=== PATIENT | female | born 1980 | race Caucasian/White ===

== ENCOUNTER 2018-09-25 21:15 | Emergency (ER) | payer OTHER ==
[2018-09-25] MEDS ORDERED: SODIUM CHLORIDE 0.9% 1,000 ML IV ONE (21:31)
--- NOTE | 2018-09-25 21:33 | ED Physician Documentation ---
PD HPI CHEST PAIN - Stated complaint Stated Complaint: ELEVATED HR/HBP/CP - Chief complaint Chief Complaint: Cardiac - History obtained from History obtained from: Patient, Family - History of Present Illness Timing - onset: Today Timing - onset during: Rest Timing - duration: Days (1) Timing - details: Gradual onset, Still present Quality: Pressure Location: Substernal Radiation: No: Jaw, Neck, Back Improved by: Rest Worsened by: Exertion Associated symptoms: No: Shortness of air, Diaphoresis, Nausea, Vomiting, Feeling faint / dizzy, General Weakness, Palpitations Similar symptoms before: Has not had sx before Recently seen: Not recently seen - Additional information Additional information: 38-year-old female who has noted a rapid heart rate and some chest pressure has come to the emergency department. She states that she has had a rapid heart rate one time previously with a panic attack but does not feel like this seems like a panic attack to her. She thinks she might be dehydrated. 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 She states she has not been ill recently.She does report that she has had some low back pain 2 days ago that was fairly severe causing her to walk bent over. This was somewhat better today. Review of Systems Constitutional: denies: Fever, Chills, Myalgias, Fatigue Eyes: denies: Decreased vision Ears: denies: Ear pain Nose: denies: Rhinorrhea / runny nose, Congestion Throat: denies: Sore throat Cardiac: reports: Chest pain / pressure. denies: Palpitations, Pedal edema, Calf pain Respiratory: denies: Dyspnea, Cough GI: denies: Abdominal Pain, Nausea, Vomiting, Constipation, Diarrhea : denies: Dysuria, Frequency Skin: denies: Rash Musculoskeletal: reports: Back pain. denies: Neck pain, Extremity pain Neurologic: denies: Generalized weakness, Focal weakness, Numbness PD PAST MEDICAL HISTORY - Present Medications Home Medications: Ambulatory Orders Medication Instructions Recorded Confirmed RX: Azithromycin [Zithromax] 250 mg PO DAILY #4 tablet 09/26/18 - Allergies Allergies/Adverse Reactions: Allergies Allergy/AdvReac Type Severity Reaction Status Date / Time No Known Drug Allergies Allergy Verified 09/25/18 21:22 PD ED PE NORMAL - Vitals Vital signs reviewed: Yes (hypertensive low grade fever and tachycardia) - General General: Alert and oriented X 3, No acute distress, Well developed/nourished - HEENT HEENT: Atraumatic, PERRL, EOMI, Ears normal, Other (dry mucous membranes) - Neck Neck: Supple, no meningeal sign, No bony TTP - Cardiac Cardiac: No murmur, Other (tachy to 115) - Respiratory Respiratory: No respiratory distress, Clear bilaterally - Abdomen Abdomen: Soft, Non tender - Back Back: No CVA TTP, No spinal TTP - Derm Derm: Normal color, Warm and dry, Other (papules of neurofibromatosis are present) - Extremities Extremities: No deformity, No edema, No calf tenderness / cord - Neuro Neuro: Alert and oriented X 3, exchange administrator 2-12 intact Eye Opening: Spontaneous Motor: Obeys Commands Verbal: Oriented GCS Score: 15 - Psych Psych: Normal mood, Normal affect Results - Vitals Vitals: Vital Signs - 24 hr 09/25/18 09/25/18 09/25/18 21:22 21:51 22:41 Temperature 37.9 C H Heart Rate 117 H 106 H 102 H Respiratory 18 16 20 Rate Blood Pressure 137/96 H 127/87 H 120/86 H O2 Saturation 98 99 98 09/26/18 09/26/18 00:06 01:58 Temperature Heart Rate 99 97 Respiratory 18 19 Rate Blood Pressure 115/82 H 111/86 H O2 Saturation 98 98 Oxygen O2 Source Room air - Labs Labs: Laboratory Tests 09/25/18 09/25/18 09/25/18 21:25 21:25 21:25 WBC 11.4 H RBC 3.61 L Hgb 9.4 L Hct 28.3 L MCV 78.6 L MCH 26.2 L MCHC 33.3 RDW 16.6 H Plt Count 330 MPV 7.7 L Neut # (Auto) 9.3 H Lymph # (Auto) 0.8 L [place] # (Auto) 1.2 H Eos # (Auto) 0.0 Baso # (Auto) 0.0 Absolute Nucleated RBC 0.01 Nucleated RBC % 0.0 Sodium 129 L Potassium 3.7 Chloride 94 L Carbon Dioxide 22 Anion Gap 13.0 BUN 13 Creatinine 0.8 Estimated GFR (MDRD) 81 L Glucose 101 H Calcium 9.2 Total Bilirubin 0.9 AST 24 ALT 20 Alkaline Phosphatase 133 H Troponin I < 0.04 Total Protein 8.1 Albumin 3.6 Globulin 4.5 H Albumin/Globulin Ratio 0.8 L Lipase 56 H Urine Color Urine Clarity Urine pH Ur Specific [place] Urine Protein Urine Glucose (UA) Urine Ketones Urine Occult Blood Urine Nitrite Urine Bilirubin Urine Urobilinogen Ur Leukocyte Esterase Urine RBC Urine WBC Ur Squamous Epith Cells Urine Bacteria Ur Microscopic Review Urine Culture Comments Urine HCG, Qual 09/25/18 22:20 WBC RBC Hgb Hct MCV MCH MCHC RDW Plt Count MPV Neut # (Auto) Lymph # (Auto) [place] # (Auto) Eos # (Auto) Baso # (Auto) Absolute Nucleated RBC Nucleated RBC % Sodium Potassium Chloride Carbon Dioxide Anion Gap BUN Creatinine Estimated GFR (MDRD) Glucose Calcium Total Bilirubin AST ALT Alkaline Phosphatase Troponin I Total Protein Albumin Globulin Albumin/Globulin Ratio Lipase Urine Color YELLOW Urine Clarity CLEAR Urine pH 6.5 Ur Specific [place] <=1.005 Urine Protein NEGATIVE Urine Glucose (UA) NEGATIVE Urine Ketones TRACE Urine Occult Blood LARGE H Urine Nitrite NEGATIVE Urine Bilirubin NEGATIVE Urine Urobilinogen 0.2 (NORMAL) Ur Leukocyte Esterase NEGATIVE Urine RBC 11-25 H Urine WBC 4-5 Ur Squamous Epith Cells MANY Squamous H Urine Bacteria Moderate H Ur Microscopic Review INDICATED Urine Culture Comments NOT INDICATED Urine HCG, Qual NEGATIVE - Rads (name of study) chest Radiology: Prelim report reviewed (Impression: Miliary nodules; differential considerations include tuberculosis, fungal infection, old varicella pneumonia, sarcoidosis, certain metastases, and several other possibilities. Direct comparison to old images would be most helpful, if they can be made available.), EMP read indepedently, See rad report Procedures - IVC sono (time) 2131 Bedside IVC sono: IVC measures (cm) (0.99), IVC collapsed c insp (cm) (complete), Dehydration (est 1-2 liter deficit) PD MEDICAL DECISION MAKING - ED course Complexity details: reviewed results, re-evaluated patient, considered differential, d/w patient, d/w family, d/w store sales consultant (Med con [facility]: Dr. 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 Saline is begun. She does have low grade fever and she is administered tylenol as well. Her x-ray is concerning for miliary nodularity and the [facility] med con service was consulted and Dr. Wright recommends work-up for TB to be done at the TB clinic at [facility]. The patient does not appear to have risk factors for TB and she is not coughing or making any phlegm. We did try to induce sputum here in the emergency department but we were unsuccessful. The patient did present to the emergency department with rapid heart rate and was found to be dehydrated. She has improvement in her heart rate with hydration. She did have some tightness in her chest and a chest x-ray was obtained. She is treated for atypical pneumonia she is administered Rocephin IV here in the emergency department and she is administered Zithromax 500 mg orally. [address] will place her on a course of a azithromycin and have her follow-up with the TB clinic at [facility]. She will also need follow-up for anemia. She is referred to the [facility]. Departure - Departure Disposition: 01 Home, Self Care Clinical Impression: Atypical pneumonia, Dehydration, Anemia Condition: Stable Instructions: ED Anemia Type Not Specified, ED Dehydration, ED Pneumonia Adult Follow-Up: [facility] [Provider Group] Prescriptions: RX: Azithromycin [Zithromax] 250 mg PO DAILY #4 tablet Comments: Today there are findings on your chest x-ray concerning for tuberculosis and the infectious disease specialist we consulted by telephone recommended that you have a work-up done for TB. The best place to have this done is at the TB clinic at [facility]. Please call them [phone] to make an appointment. Forms: Activity restrictions Discharge Date/Time: 09/26/18 02:06
[2018-09-25] MEDS ORDERED: ACETAMINOPHEN 325 MG TABLET PO STA (21:38)
[2018-09-25 21:40] LABS: BASOPHILS % (AUTO) 0.1 %; EOSINOPHILS % (AUTO) 0.1 %; HGB - HEMOGLOBIN 9.4 g/dL (12.0-16.0); LYMPHOCYTES # (AUTO) 0.8 10^3/uL (1.5-3.5); LYMPHOCYTES % (AUTO) 6.6 %; MEAN CORPUSCULAR HEMOGLOBIN 26.2 pg (27.0-31.0); MEAN CORPUSCULAR HGB CONC 33.3 g/dL (32.0-36.0); MEAN CORPUSCULAR VOLUME 78.6 fL (81.0-99.0); MEAN PLATELET VOLUME 7.7 fL (7.9-10.8); MONOCYTES # (AUTO) 1.2 10^3/uL (0.0-1.0); MONOCYTES % (AUTO) 10.9 %; NEUTROPHILS # (AUTO) 9.3 10^3/uL (1.5-6.6); NEUTROPHILS % (AUTO) 82.3 %; PLT - PLATELET COUNT 330 10^3/uL (130-450); RED BLOOD COUNT 3.61 10^6/uL (4.20-5.40); RED CELL DISTRIBUTION WIDTH 16.6 % (12.0-15.0); WHITE BLOOD COUNT 11.4 x10^3/uL (4.8-10.8)
[2018-09-25 21:49] LABS: ALBUMIN 3.6 g/dL (3.2-5.5); ALBUMIN/GLOBULIN RATIO 0.8 (1.0-2.2); BILIRUBIN,TOTAL 0.9 mg/dL (0.2-1.0); CALCIUM 9.2 mg/dL (8.5-10.3); CREATININE 0.8 mg/dL (0.4-1.0); TOTAL PROTEIN 8.1 g/dL (6.7-8.2)
--- NOTE | 2018-09-25 22:14 | XRAY Report ---
Reason: chest pain Procedure Date: 09/25/2018 Accession Number: [id number] / [id number] Procedure: XR - Chest 1 View X-Ray CPT Code: 52064 FULL RESULT: EXAM: CHEST RADIOGRAPHY EXAM DATE: 09/25/2018 09:50 PM. CLINICAL HISTORY: Chest pain. COMPARISON: None. TECHNIQUE: 1 view. FINDINGS: Lungs/Pleura: Numerous tiny nodular densities throughout both lungs. No consolidation, effusion, or pneumothorax. Mediastinum: Within exam limitations, the cardiomediastinal contour is normal. Upper lobe vessels not distended. Other: None. IMPRESSION: Miliary nodules; differential considerations include tuberculosis, fungal infection, old varicella pneumonia, sarcoidosis, certain metastases, and several other possibilities. Direct comparison to old images would be most helpful, if they can be made available. RADIA
[2018-09-25 22:26] LABS: BILIRUBIN,URINE NEGATIVE (NEGATIVE); GLUCOSE, URINE (UA) NEGATIVE (NEGATIVE); KETONES,URINE (UA) TRACE mg/dL (NEGATIVE); LEUKOCYTE ESTERASE, URINE NEGATIVE (NEGATIVE); NITRITE,URINE NEGATIVE (NEGATIVE); OCCULT BLOOD,URINE LARGE (NEGATIVE); PH,URINE 6.5 PH (5.0-7.5); PROTEIN,URINE NEGATIVE (NEGATIVE); UROBILINOGEN,URINE 0.2 (NORMAL) E.U./dL (NORMAL)
[2018-09-25 22:28] LABS: CLARITY,URINE CLEAR (CLEAR); HCG UR QUAL NEGATIVE
[2018-09-25 22:34] LABS: BACTERIA,URINE Moderate /HPF (None Seen); SQUAMOUS EPITHELIAL CELL,UR MANY Squamous (<= Few)
[2018-09-25] MEDS ORDERED: AZITHROMYCIN 250 MG TABLET PO STA (23:52)
[2018-09-25] MEDS ORDERED: cefTRIAXone 1 GM in SODIUM CHLORIDE 0.9% MINIBAG 100 ML IV STA (23:52)
[2018-09-26 01:58] VITALS: BP 111/86
== END 2018-09-26 02:06 | disposition home or self-care (01) ==
LOC: ED 21:15
DX: J18.9 Pneumonia, unspecified organism (principal); E86.0 Dehydration; D64.9 Anemia, unspecified; Q85.01 Neurofibromatosis, type 1
CPT/HCPCS: 36415; 71045; 80053; 81001; 81003; 81025; 83690; 84484; 85025; 87086; 93005; 96361; 96365; 96366; 99284

== ENCOUNTER 2018-09-26 07:11 | Outpatient (CLI) | payer OTHER | END 2018-09-26 07:12 | disposition critical access hospital (66) | LOC: EMS 07:11 | PROVIDERS: ATTEND Surgery | DX: M79.621 Pain in right upper arm (principal); R07.1 Chest pain on breathing | CPT/HCPCS: A0425; A0429 ==

== ENCOUNTER 2018-09-26 07:29 | Emergency (ER) | payer OTHER ==
--- NOTE | 2018-09-26 07:39 | ED Physician Documentation ---
PD HPI CHEST PAIN - Stated complaint Stated Complaint: L SIDED CHEST PX - Chief complaint Chief Complaint: Resp - History obtained from History obtained from: Patient, EMS - History of Present Illness Timing - onset: Today (She had been having some feeling of chest tightness and left anterior pains associated with elevated heart rate just for a day or 2. She was seen last night in the ER with chest x-ray showing some diffuse small nodules concerning for atypical infection. She was given IV fluids and nebulizer treatment and some anti-inflammatories and felt okay at the time. She awoke this morning with a pleuritic significant pain on the right lateral chest. She denies any feeling of fever but has felt chilled. She denies any coughing. She has not had any prior similar episodes.), How many days ago (2-3) Timing - onset during: Rest, Light activity Timing - duration: Days (2-3 days of some chest tightness and mild pain, with significant right chest pain today.) Timing - details: Gradual onset, Still present Quality: Aching, Sharp, Pain Location: Left chest (yesterday), Right chest (today) Radiation: No: Neck, Back Associated symptoms: Shortness of air, Palpitations (feeling heart rate is fast). No: Nausea, Feeling faint / dizzy Similar symptoms before: Has not had sx before Recently seen: Emergency Dept (last evening for similar) Review of Systems Constitutional: reports: Chills, Fatigue. denies: Fever, Myalgias Nose: denies: Rhinorrhea / runny nose, Congestion Throat: denies: Sore throat Respiratory: denies: Cough GI: reports: Other (residential poor appetite and trouble gaining weight. Denies recent weight loss per se.). denies: Abdominal Pain, Nausea, Vomiting Skin: denies: Rash, Lesions Neurologic: reports: Generalized weakness. denies: Focal weakness, Numbness, Near syncope PD PAST MEDICAL HISTORY - Past Medical History Cardiovascular: None Respiratory: None GI: None Derm: Other (neurofibromatosis 1) - Past Surgical History Past Surgical History: Yes General: Appendectomy - Present Medications Home Medications: Ambulatory Orders Medication Instructions Recorded Confirmed Azithromycin [Zithromax] 250 mg PO DAILY #4 tablet 09/26/18 09/26/18 Docusate Sodium 100 mg PO DAILY #30 capsule 09/26/18 Hydrocodone/Acetaminophen [[place] 1 each PO Q6H PRN #25 tablet 09/26/18 5-325 Tablet] Naproxen 375 mg PO BID #20 tablet 09/26/18 dexAMETHasone [Decadron] 4 mg PO DAILY #5 tablet 09/26/18 - Allergies Allergies/Adverse Reactions: Allergies Allergy/AdvReac Type Severity Reaction Status Date / Time No Known Drug Allergies Allergy Verified 09/26/18 07:36 - Social History Does the pt smoke?: No Smoking Status: Never smoker Does the pt drink ETOH?: No Does the pt have substance abuse?: No - Immunizations Immunizations are current?: No PD ED PE NORMAL - Vitals Vital signs reviewed: Yes - General General: Alert and oriented X 3, Other (appears uncomfortable with guarded breathing due to pain right chest. ). No: Well developed/nourished (small size and thin.) - HEENT HEENT: Ears normal - Neck Neck: Supple, no meningeal sign, No adenopathy - Cardiac Cardiac: RRR (mild tachycardia), No murmur - Respiratory Respiratory: Clear bilaterally (diminished sounds bilaterally but guarded breathing. No overt wheezing nor congestion. ) - Abdomen Abdomen: Soft, Non tender, Other (fullness without tenderness upper to mid abd, large palpable mass. Nonpulsatile.) - Back Back: No CVA TTP - Derm Derm: Normal color, Warm and dry - Extremities Extremities: No tenderness to palpate, No edema, No calf tenderness / cord, Other (small nodules felt under skin c/w fibromas. ) - Neuro Neuro: Alert and oriented X 3, No motor deficit, Normal speech Results - Vitals Vitals: Vital Signs - 24 hr 09/26/18 09/26/18 09/26/18 07:32 07:44 08:49 Temperature 36.6 C 36.6 C Heart Rate 105 H 101 H 110 H Respiratory 16 16 Rate Blood Pressure 127/82 H 127/82 H O2 Saturation 100 100 09/26/18 11:26 Temperature 37.1 C Heart Rate 108 H Respiratory 20 Rate Blood Pressure 115/79 O2 Saturation 98 Oxygen O2 Source Room air - Labs Labs: Laboratory Tests 09/26/18 09/26/18 09/26/18 08:00 08:00 08:00 WBC 10.3 RBC 3.50 L Hgb 9.0 L Hct 27.9 L MCV 79.7 L MCH 25.6 L MCHC 32.1 RDW 16.7 H Plt Count 276 MPV 7.3 L Neut # (Auto) 8.6 H Lymph # (Auto) 0.4 L Rains # (Auto) 1.3 H Eos # (Auto) 0.0 Baso # (Auto) 0.1 Absolute Nucleated RBC 0.00 Nucleated RBC % 0.0 ESR PT INR D-Dimer > 1050.0 H Sodium 135 Potassium 3.5 Chloride 100 L Carbon Dioxide 22 Anion Gap 13.0 BUN 10 Creatinine 0.6 Estimated GFR (MDRD) 112 Glucose 102 H Calcium 8.6 Total Bilirubin 0.9 AST 17 ALT 19 Alkaline Phosphatase 118 Total Protein 7.6 Albumin 3.2 Globulin 4.4 H Albumin/Globulin Ratio 0.7 L Lipase 33 09/26/18 09/26/18 08:00 12:23 WBC RBC Hgb Hct MCV MCH MCHC RDW Plt Count MPV Neut # (Auto) Lymph # (Auto) Rains # (Auto) Eos # (Auto) Baso # (Auto) Absolute Nucleated RBC Nucleated RBC % ESR 68 H PT 16.4 H INR 1.5 H D-Dimer Sodium Potassium Chloride Carbon Dioxide Anion Gap BUN Creatinine Estimated GFR (MDRD) Glucose Calcium Total Bilirubin AST ALT Alkaline Phosphatase Total Protein Albumin Globulin Albumin/Globulin Ratio Lipase - Rads (name of study) chest xray Radiology: Prelim report reviewed (similar to prior with multiple small nodules) chest/abd/pelvic CT Radiology: Prelim report reviewed, Discussed with rads (Multiple lung nodules as well as liver nodules and a very large intra-abdominal mass measuring up to 27 cm in length and 13 cm wide. The origin of it is not completely clear. It may be from the adrenal area. There is displacement of other organs around it.), See rad report PD MEDICAL DECISION MAKING - ED course Complexity details: reviewed results, re-evaluated patient (She is feeling better with significantly less pain after pain medicine and anti- inflammatories.), considered differential (The concern of infectious versus tissue causes of the lung nodules is better ascertained with the CT scan. This was done and showed it to be apparent tissue nodules in the lung and liver. This would be unlikely to be her neurofibromatosis. 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 I talked with and pro which is the [facility]. They arranged a follow-up interventional radiology biopsy for tomorrow and the images were pushed to them and his CD was given for the patient. On her CT there was no signs of blood clots nor other infectious or vascular process. She can be treated outpatient with anti- inflammatories and pain medicine. She has follow-up tomorrow with [facility].), d/w patient, d/w professional services consultant (Discussed with [facility] through [facility] for disposition. They were able to arrange a follow-up with the patient at their first [place] clinic for interventional radiology biopsy and then to be seen at the urgent care tomorrow. This seems like an reasonable type follow-up for the patient.) Departure - Departure Disposition: 01 Home, Self Care Clinical Impression: Pleuritic chest pain, Intra-abdominal tumor, Lung nodule, multiple Condition: Stable Record reviewed to determine appropriate education?: Yes Prescriptions: dexAMETHasone [Decadron] 4 mg PO DAILY #5 tablet Docusate Sodium 100 mg PO DAILY #30 capsule Hydrocodone/Acetaminophen [[place] 5-325 Tablet] 1 each PO Q6H PRN #25 tablet PRN Reason: Pain Naproxen 375 mg PO BID #20 tablet Comments: You can stop the azithromycin antibiotics as this does not look infectious. You do have a large abdominal tumor and this needs to be better evaluated. [facility] has arranged for you to get a biopsy of the tumor at their [place] location tomorrow and they are going to call you for details and information about it. You can use Decadron steroid anti-inflammatory and Tylenol or hydrocodone as needed for the pains. Do not take any anti-inflammatories or aspirin today in anticipation of biopsy tomorrow. After that you could use some naproxen to help with the inflammation and pain. Stay well-hydrated.
[2018-09-26] MEDS ORDERED: MORPHINE 2 MG/ML CARPUJECT IVP STA ×2 (07:40→08:57)
[2018-09-26] MEDS ORDERED: SODIUM CHLORIDE 0.9% 1,000 ML IV ONE (07:40)
[2018-09-26] MEDS ORDERED: KETOROLAC 15 MG/ML VIAL IVP STA (07:40)
[2018-09-26] MEDS ORDERED: ALBUTEROL NEB 2.5 MG/3 ML INH STA (08:03)
[2018-09-26 08:12] LABS: BASOPHILS # (AUTO) 0.1 10^3/uL (0.0-0.1); BASOPHILS % (AUTO) 0.6 %; EOSINOPHILS % (AUTO) 0.1 %; LYMPHOCYTES # (AUTO) 0.4 10^3/uL (1.5-3.5); LYMPHOCYTES % (AUTO) 3.6 %; MEAN CORPUSCULAR HEMOGLOBIN 25.6 pg (27.0-31.0); MEAN CORPUSCULAR HGB CONC 32.1 g/dL (32.0-36.0); MEAN CORPUSCULAR VOLUME 79.7 fL (81.0-99.0); MEAN PLATELET VOLUME 7.3 fL (7.9-10.8); MONOCYTES # (AUTO) 1.3 10^3/uL (0.0-1.0); MONOCYTES % (AUTO) 12.3 %; NEUTROPHILS # (AUTO) 8.6 10^3/uL (1.5-6.6); NEUTROPHILS % (AUTO) 83.4 %; PLT - PLATELET COUNT 276 10^3/uL (130-450); RED CELL DISTRIBUTION WIDTH 16.7 % (12.0-15.0); WHITE BLOOD COUNT 10.3 x10^3/uL (4.8-10.8)
[2018-09-26 08:22] LABS: ALBUMIN 3.2 g/dL (3.2-5.5); ALBUMIN/GLOBULIN RATIO 0.7 (1.0-2.2); BILIRUBIN,TOTAL 0.9 mg/dL (0.2-1.0); CALCIUM 8.6 mg/dL (8.5-10.3); CREATININE 0.6 mg/dL (0.4-1.0); TOTAL PROTEIN 7.6 g/dL (6.7-8.2)
--- NOTE | 2018-09-26 08:36 | XRAY Report ---
Reason: chest pain; possible pneumonitis Procedure Date: 09/26/2018 Accession Number: [id number] / [id number] Procedure: XR - Chest 1 View X-Ray CPT Code: 62262 FULL RESULT: EXAM: CHEST RADIOGRAPHY EXAM DATE: 09/26/2018 08:12 AM. CLINICAL HISTORY: Chest pain; possible pneumonitis. COMPARISON: CHEST 1 VIEW 09/25/2018 9:36 PM. TECHNIQUE: 1 view. FINDINGS: Lungs/Pleura: Diminished lung volumes. Reticular nodular densities throughout both lungs. No pneumothorax or pleural effusion. No cavitary lesion demonstrated by plain film. Mediastinum: Within exam limitations, the cardiomediastinal contour is normal. Other: None. IMPRESSION: 1. Poor inspiration. 2. Diffuse reticular-nodular opacities may be related to infectious, inflammatory or neoplastic process. Question tuberculosis, fungal infection, metastatic disease, sarcoidosis or other etiology. No mediastinal or hilar adenopathy evident by plain film. Recommend clinical correlation and contrast-enhanced chest CT. RADIA
[2018-09-26] MEDS ORDERED: IOVERSOL 320 100 ML VIAL IVP ONE ×3 (08:57→09:39)
--- NOTE | 2018-09-26 09:58 | CT Report ---
Reason: chest pain and dyspnea; abn CXR Procedure Date: 09/26/2018 Accession Number: [id number] / [id number] Procedure: CT - ANGIO CHEST W/WO CPT Code: FULL RESULT: EXAM: CT ANGIOGRAM CHEST EXAM DATE: 09/26/2018 09:31 AM. CLINICAL HISTORY: Chest pain and dyspnea. COMPARISON: Chest radiograph from 09/26/2018. TECHNIQUE: Routine helical imaging was performed through the chest in the pulmonary arterial phase. IV Contrast: 80 cc Optiray 320. Reconstructions: Coronal 3-D MIP reconstructions.Sagittal and coronal. In accordance with CT protocol optimization, one or more of the following dose reduction techniques were utilized for this exam: automated exposure control, adjustment of mA and/or KV based on patient size, or use of iterative reconstructive technique. FINDINGS: Pulmonary Arteries: Diagnostic quality: Adequate through the proximal aspects of the segmental arteries. There is fairly substantial respiratory motion which limits evaluation of the more distal vessels. There is no evidence for acute pulmonary embolism in the evaluable pulmonary arteries. Lungs/Pleura: Evaluation of the pulmonary parenchyma is limited by fairly significant respiratory motion. There are innumerable pulmonary nodules in both lungs with greatest prominence in the bases. These appear fairly randomly distributed. Data Collection Interviewer nodules are as follows: 1. A 1.6 x 1.2 cm nodule along the medial aspect of the left major fissure (series 6, image 79). 2. A 1.0 x 1.0 cm nodule in the lateral basilar segment of the right lower lobe (series 6, image 94). A small right pleural effusion is present. No left pleural effusion. Mediastinum: Heart size is within normal limits. There is no pericardial effusion. No mediastinal adenopathy demonstrated. The thoracic aorta is normal in caliber. Upper Abdomen: Please refer to separately reported CT of the abdomen and pelvis for details. Other: No axillary or supraclavicular adenopathy. No suspicious osseous lesion. There appear to be multiple small cutaneous or subcutaneous nodules in the chest, such as in the right upper breast (series 5, image 51), central anterior chest (series 5, image 74), lower posterior chest (series 5, images 115 and 119), and right lateral lower chest (series 5, image 133). IMPRESSION: 1. No evidence of acute pulmonary embolism to the proximal aspects of the segmental branches. The distal branch vessels are not well evaluated secondary to substantial respiratory motion. 2. Innumerable bilateral pulmonary nodules with basilar distribution, raising the possibility of metastatic disease. 3. Multiple cutaneous and subcutaneous nodules in the chest, which are nonspecific but could also represent metastases. [facility]IA ADDENDUM: 09/26/18 10:[address] Pina by Dr. Kumar at approximately 10:09 AM on 09/26/2018. There is reportedly history of neurofibromatosis, suggesting the cutaneous nodules may represent neurofibromas.
--- NOTE | 2018-09-26 10:27 | CT Report ---
Reason: abd fullness Procedure Date: 09/26/2018 Accession Number: [id number] / [id number] Procedure: CT - Abdomen/Pelvis W CPT Code: FULL RESULT: EXAM: CT ABDOMEN AND PELVIS EXAM DATE: 09/26/2018 09:31 AM. CLINICAL HISTORY: Abdominal fullness. COMPARISONS: CTA chest performed concurrently, 09/26/2018. TECHNIQUE: Routine helical CT imaging was performed through the abdomen and pelvis. IV contrast: 60 cc Optiray 320. Enteric contrast: No. Reconstructions: Coronal and sagittal. In accordance with CT protocol optimization, one or more of the following dose reduction techniques were utilized for this exam: automated exposure control, adjustment of mA and/or KV based on patient size, or use of iterative reconstructive technique. FINDINGS: Lung Bases: Innumerable pulmonary nodules present in the lung bases with small right pleural effusion. This is further described on separately reported CTA chest. Liver: There are multiple hypoattenuating masses. For example: 1. A 2.3 x 2.0 cm lesion is present in segment 7 (series 3, image 18). 2. A 3.0 x 2.3 cm lesion is present in segment 6 (series 3, image 36). Gallbladder/Bile Ducts: Unremarkable. Spleen: Normal in size. No focal splenic lesion. The splenic vasculature is displaced anteriorly by a large left abdominal mass. Pancreas: Somewhat difficult to visualize but appears displaced anteriorly by a large left abdominal mass. The mass abuts portions of the distal pancreatic body and tail (series 3, images 17 and 19) but does not definitively arise from the pancreas. Adrenal Glands: The right adrenal gland is unremarkable. The left adrenal gland is not well seen. There is a large, heterogeneous, left-sided abdominal mass measuring approximately 18.3 x 12.2 x 27.1 cm (series 3, image 30 and series 6, image 20). Kidneys: The left kidney is displaced inferiorly and posteriorly by the mass. However, the mass is not definitively arise from the left kidney (series 6, image 19). The right kidney is unremarkable. Peritoneal Cavity/Bowel: Large left-sided abdominal mass, as described above. This does not definitively arise from the spleen, pancreas, or left kidney. The left adrenal gland is not well seen, and left adrenal origin is not excluded. Alternatively, this could represent sarcoma or other mesenchymal tumor. The stomach appears displaced anteriorly and medially. There is no evidence of bowel obstruction or inflammation. Pelvic Organs: Uterus is unremarkable. Bilateral ovaries demonstrate cysts. A left ovarian cyst measures up to 3.8 cm and appears to have layering dependent dense material (series 3, image 75). No iliac chain adenopathy. There is trace pelvic free fluid. Vasculature: No abdominal aortic aneurysm. 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 Bones: There is a nonspecific area of mild sclerosis involving the right ilium (series 3, image 59). This is somewhat ill-defined. No other lytic or sclerotic osseous lesion demonstrated. Other: There appears to be an enlarged right retrocrural lymph node measuring 1.6 x 1.1 cm (series 3, image 26). As seen in the chest, there are multiple cutaneous nodules, such as a small nodule in the anterior upper abdomen (series 3, image 28), nodules in the anterior mid abdomen (series 3, image 50), nodules in the left posterior pelvis (series 3, image 55), and nodule in the right anterior thigh (series 3, image 82). Additional cutaneous nodules are present elsewhere. IMPRESSION: 1. Very large, heterogeneous left abdominal mass, measuring up to 27.1 cm. This may be retroperitoneal in origin given posterior displacement of the left kidney and anterior displacement of the pancreas. The left adrenal gland is not well seen, and this could represent adrenal tumor. Other possibilities include retroperitoneal sarcoma or other mesenchymal tumor. Tissue sampling may be required for definitive diagnosis. 2. There are multiple hypoattenuating liver lesions and innumerable pulmonary nodules in the lung bases, concerning for metastatic disease. 3. Enlarged right retrocrural lymph node is suspicious for metastasis. 4. Multiple cutaneous nodules are demonstrated in the abdomen and pelvis. 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 5. Nonspecific areas of mild sclerosis in the right ilium. Given findings of suspected metastatic disease, consider further evaluation with PET/CT. 6. Bilateral ovarian cyst, including mildly complicated left ovarian cyst with dependently layering material, which could represent hemorrhage or proteinaceous debris. However, this is not optimally evaluated by CT. Consider further evaluation with pelvic ultrasound. [facility] The call report notification system was initiated by Dr. Eduardo Kumar at 10:03 AM on 09/26/2018. Findings regarding large left abdominal mass and findings concerning for metastatic disease were discussed with Dr. Momo Pina by Dr. Eduardo Kuamr at 10:06 AM on 09/26/2018.
[2018-09-26] MEDS ORDERED: DEXAMETHASONE 10 MG/ML VIAL IVP STA (12:18)
[2018-09-26 12:34] LABS: INR 1.5 (0.8-1.2); PT - PROTHROMBIN TIME 16.4 secs (9.9-12.6)
[2018-09-26 12:42] LABS: PARTIAL THROMBOPLASTIN TIME 27.1 secs (24.9-33.3)
[2018-09-26 13:07] VITALS: BP 115/82
== END 2018-09-26 13:13 | disposition home or self-care (01) ==
LOC: EDUNIT# → ED 07:29
DX: R07.81 Pleurodynia (principal); R19.00 Intra-abdominal and pelvic swelling, mass and lump, unspecified site; R91.8 Other nonspecific abnormal finding of lung field; J18.9 Pneumonia, unspecified organism; E86.0 Dehydration; D64.9 Anemia, unspecified; Q85.01 Neurofibromatosis, type 1
CPT/HCPCS: 36415; 71045; 71275; 74177; 80053; 81001; 81025; 83690; 84484; 85025; 85379; 85610; 85651; 85730; 93005; 94640; 96361; 96365; 96366; 96374; 96375; 99283; 99284; A9270; Q9967

== ENCOUNTER 2019-01-12 20:13 | Outpatient (CLI) | payer OTHER | END 2019-01-12 20:14 | disposition critical access hospital (66) | LOC: EMS 20:13 | PROVIDERS: ATTEND Surgery | DX: R07.9 Chest pain, unspecified (principal) | CPT/HCPCS: A0425; A0427 ==

== ENCOUNTER 2019-01-12 20:31 | Emergency (ER) | payer OTHER ==
--- NOTE | 2019-01-12 20:56 | ED Physician Documentation ---
PD HPI CHEST PAIN - Stated complaint Stated Complaint: CP - Chief complaint Chief Complaint: Cardiac - History obtained from History obtained from: Patient, EMS - History of Present Illness Timing - onset: Enter time (19:30), Today Timing - onset during: Other Timing - duration: Hours Timing - details: Gradual onset Pain level now: 8 Quality: Pain Location: Left chest Radiation: Left upper extremity (left shoulder) Improved by: Nothing Worsened by: Other (no exacerbating factors) Associated symptoms: No: Shortness of air, Nausea, Vomiting Recently seen: Emergency Dept (T+R from this ED in September) Review of Systems Constitutional: reports: Reviewed and negative Cardiac: reports: Chest pain / pressure. denies: Palpitations, Pedal edema, Calf pain Respiratory: reports: Reviewed and negative GI: reports: Diarrhea. denies: Abdominal Pain, Nausea, Vomiting : denies: Dysuria, Frequency Neurologic: reports: Reviewed and negative PD PAST MEDICAL HISTORY - Past Medical History Cardiovascular: None Respiratory: None GI: None Derm: Other Other Past Medical History: pheochromocytoma - Past Surgical History Past Surgical History: Yes General: Appendectomy Other past surgical history: excision of intraabdominal mass (pheochromocytoma) last month - Present Medications Home Medications: Ambulatory Orders Medication Instructions Recorded Confirmed Cannabidiol (Cbd) Extract 0 mg PO 01/12/19 [Epidiolex] Enoxaparin Sodium [Lovenox] 0 mg SQ 01/12/19 - Allergies Allergies/Adverse Reactions: Allergies Allergy/AdvReac Type Severity Reaction Status Date / Time No Known Drug Allergies Allergy Verified 01/12/19 20:39 - Living Situation Living Arrangement: reports: At home - Social History Does the pt smoke?: No Smoking Status: Never smoker Does the pt drink ETOH?: No Does the pt have substance abuse?: No - Immunizations Immunizations are current?: No - POLST Patient has POLST: No PD ED PE NORMAL - Vitals Vital signs reviewed: Yes - General General: Alert and oriented X 3, Well developed/nourished, Other (cachectic but NAD) - HEENT HEENT: Moist mucous membranes - Neck Neck: Supple, no meningeal sign - Cardiac Cardiac: RRR, No murmur, No gallop, No rub - Respiratory Respiratory: No respiratory distress, Clear bilaterally - Abdomen Abdomen: Soft, Non tender, Other (large "Y"-shaped surgical site wound is clean/dry/intact) - Back Back: No spinal TTP - Derm Derm: Normal color, Warm and dry - Extremities Extremities: No edema - Neuro Neuro: Alert and oriented X 3 Results - Vitals Vitals: Vital Signs - 24 hr 01/12/19 01/12/19 01/12/19 20:32 20:55 21:19 Temperature 37.2 C 36.9 C Heart Rate 113 H 116 H 117 H Respiratory 18 17 25 H Rate Blood Pressure 113/74 113/74 114/81 H O2 Saturation 95 98 95 01/12/19 01/12/19 01/12/19 21:36 22:10 22:53 Temperature Heart Rate 115 H 115 H 116 H Respiratory 27 H 36 H 32 H Rate Blood Pressure 106/76 112/76 111/79 O2 Saturation 94 93 93 01/12/19 01/13/19 01/13/19 23:16 00:26 01:19 Temperature 36.9 C Heart Rate 118 H 118 H 117 H Respiratory 26 H 24 26 H Rate Blood Pressure 109/74 108/78 104/76 O2 Saturation 95 93 94 01/13/19 01:52 Temperature 36.7 C Heart Rate 117 H Respiratory 34 H Rate Blood Pressure 105/72 O2 Saturation 94 Oxygen O2 Source Room air - EKG (time done) No standard instances Rate: Rate (enter#) (110), Tachy Rhythm: Sinus tachycardia Julian: Normal Intervals: Normal NE QRS: Normal Ischemia: Normal ST segments - Labs Labs: Laboratory Tests 01/12/19 01/12/19 01/12/19 21:15 21:15 21:15 WBC 9.2 RBC 3.03 L Hgb 7.2 L Hct 24.7 L MCV 81.5 MCH 23.8 L MCHC 29.1 L RDW 19.8 H Plt Count 559 H MPV 8.8 Neut # (Auto) 7.0 H Lymph # (Auto) 1.1 L Curry # (Auto) 0.9 Eos # (Auto) 0.0 Baso # (Auto) 0.1 Absolute Nucleated RBC 0.00 Nucleated RBC % 0.0 Sodium 136 Potassium 3.8 Chloride 101 Carbon Dioxide 24 Anion Gap 11.0 BUN 14 Creatinine 0.6 Estimated GFR (MDRD) 112 Glucose 109 H Calcium 8.8 Total Bilirubin 0.4 AST 28 ALT 23 Alkaline Phosphatase 309 H Troponin I High Sens 3.3 Total Protein 6.9 Albumin 2.9 L Globulin 4.0 Albumin/Globulin Ratio 0.7 L Lipase 33 Serum HCG, Qual 01/12/19 01/12/19 21:15 22:30 WBC RBC Hgb Hct MCV MCH MCHC RDW Plt Count MPV Neut # (Auto) Lymph # (Auto) Curry # (Auto) Eos # (Auto) Baso # (Auto) Absolute Nucleated RBC Nucleated RBC % Sodium Potassium Chloride Carbon Dioxide Anion Gap BUN Creatinine Estimated GFR (MDRD) Glucose Calcium Total Bilirubin AST ALT Alkaline Phosphatase Troponin I High Sens 3.2 Total Protein Albumin Globulin Albumin/Globulin Ratio Lipase Serum HCG, Qual NEGATIVE PD MEDICAL DECISION MAKING - ED course Complexity details: reviewed old records, reviewed results, re-evaluated patient, considered differential, d/w patient ED course: I went to reevaluate patient at 9:50 PM to discuss test results (including anemia), and reassess for pain location (might benefit from CT A/P with the CT chest). Patient is on phone and family member at bedside tells me patient is supposed to be transferred to [facility]. Family member says patient's doctors are at [facility], have been notified, and are expecting patient to be transferred. Patient then handed me the phone to have me speak with whoever was calling patient. The person on the phone reiterated that "arrangements have already been made" and that she (the person on the phone) has made phone calls and that the patient is to be transferred now to [facility] by ambulance. I asked this person her title and she says she is patient's "main caregiver and friend". I explained that I cannot transfer a patient until I myself have spoken with the appropriate contact at the receiving hospital. This person says I can put one of two oncologists as accepting physician, but I again explained that I cannot transfer patient until I myself have spoken to appropriate contact at [facility]. Patient refuses CT chest and CT A/P, repeatedly requesting transfer to [facility]. Patient and friend tell me that patient has doctors at [facility] who have been contacted and are waiting to receive her in transfer. D/W Dr. Doan (on-call for [place]). He needed some time to review information and d/w on-call oncologist for [place]. Dr. Doan subsequently called me back and said he had discussed this case with Dr. Cooper (oncology [facility]), and both Dr. Cooper and Dr. Doan agree patient is appropriate for transfer to [facility]. D/W [facility] transfer center coordinator. She does not see any indication that transfer to [facility] has already been arranged. She will call back after discussing the case with appropriate [facility] physicians. I then discussed the case with Dr. Lopez (oncology at [facility]). He agrees patient would be appropriate for transfer but wonders if patient would be more appropriate for transfer to hospitalist. Plan is to get chest xray here ([facility]) before transfer to ensure stability. I discussed this with the patient and she was agreeable. I subsequently was told that patient was refusing the chest xray. I went back into room to confirm this, and patient says she had chest xray here in September and has had chest xrays at [facility]. She does not feel there would be any changes since previous chest xray. I then discussed the case with Dr. Goodman, hospitalist at [facility], he accepts for transfer and understands that patient has refused imaging at [facility]. Departure - Departure Disposition: 02 Transfer Acute Care Hosp Clinical Impression: Anemia Qualifiers: Anemia type: unspecified type Qualified Code(s): D64.9 - Anemia, unspecified Chest pain Qualifiers: Chest pain type: unspecified Qualified Code(s): R07.9 - Chest pain, unspecified Condition: Stable Discharge Date/Time: 01/13/19 01:58
[2019-01-12] MEDS ORDERED: MORPHINE 2 MG/ML CARPUJECT IVP STA ×3 (20:59→22:31)
[2019-01-12 21:22] LABS: BASOPHILS # (AUTO) 0.1 10^3/uL (0.0-0.1); BASOPHILS % (AUTO) 0.7 %; EOSINOPHILS % (AUTO) 0.3 %; HGB - HEMOGLOBIN 7.2 g/dL (12.0-16.0); LYMPHOCYTES # (AUTO) 1.1 10^3/uL (1.5-3.5); MEAN CORPUSCULAR HEMOGLOBIN 23.8 pg (27.0-31.0); MEAN CORPUSCULAR HGB CONC 29.1 g/dL (32.0-36.0); MEAN CORPUSCULAR VOLUME 81.5 fL (81.0-99.0); MEAN PLATELET VOLUME 8.8 fL (7.9-10.8); MONOCYTES # (AUTO) 0.9 10^3/uL (0.0-1.0); MONOCYTES % (AUTO) 10.1 %; NEUTROPHILS % (AUTO) 76.5 %; PLT - PLATELET COUNT 559 10^3/uL (130-450); RED BLOOD COUNT 3.03 10^6/uL (4.20-5.40); RED CELL DISTRIBUTION WIDTH 19.8 % (12.0-15.0); WHITE BLOOD COUNT 9.2 x10^3/uL (4.8-10.8)
[2019-01-12] MEDS ORDERED: IOVERSOL 320 100 ML VIAL IVP ONE (21:29)
[2019-01-12 21:35] LABS: ALBUMIN 2.9 g/dL (3.2-5.5); ALBUMIN/GLOBULIN RATIO 0.7 (1.0-2.2); BILIRUBIN,TOTAL 0.4 mg/dL (0.2-1.0); CALCIUM 8.8 mg/dL (8.5-10.3); CREATININE 0.6 mg/dL (0.4-1.0); TOTAL PROTEIN 6.9 g/dL (6.7-8.2)
[2019-01-12 22:08] LABS: HCG,QUALITATIVE BLOOD NEGATIVE
[2019-01-13] MEDS ORDERED: MORPHINE 2 MG/ML CARPUJECT IVP STA (01:33)
[2019-01-13 01:53] VITALS: BP 105/72
== END 2019-01-13 01:58 | disposition short-term general hospital (02) ==
LOC: EDUNIT# → ED 20:31
DX: R07.9 Chest pain, unspecified (principal); D64.9 Anemia, unspecified; D36.7 Benign neoplasm of other specified sites; Z98.890 Other specified postprocedural states
CPT/HCPCS: 36415; 80053; 83690; 84484; 84703; 85025; 93005; 96374; 96376; 99284

== ENCOUNTER 2019-01-13 02:00 | Outpatient (CLI) | payer OTHER | END 2019-01-13 02:01 | disposition short-term general hospital (02) | LOC: EMS 02:00 | PROVIDERS: ATTEND Surgery | DX: R07.9 Chest pain, unspecified (principal); D64.9 Anemia, unspecified; D35.00 Benign neoplasm of unspecified adrenal gland | CPT/HCPCS: A0425; A0426 ==

== ENCOUNTER 2019-02-16 17:44 | Outpatient (CLI) | payer OTHER | END 2019-02-16 17:45 | disposition critical access hospital (66) | LOC: EMS 17:44 | PROVIDERS: ATTEND Surgery | DX: R10.9 Unspecified abdominal pain (principal); R19.7 Diarrhea, unspecified | CPT/HCPCS: A0425; A0429 ==

== ENCOUNTER 2019-02-16 18:19 | Emergency (ER) | payer OTHER ==
[2019-02-16] MEDS ORDERED: SODIUM CHLORIDE 0.9% 1,000 ML IV STA (18:28)
--- NOTE | 2019-02-16 18:36 | ED Physician Documentation ---
History of Present Illness - Stated complaint Stated Complaint: SOA/ABD PAIN - History obtained from History obtained from: Patient, Family, EMS - History of Present Illness Timing: Today Pain level max: 8 Pain level now: 8 Improved by: Nothing Worsened by: Movement, palpation - Additonal information Additional information: 38-year-old female who receives her oncology care at the [facility]. She states she has had increasing chest and abdominal pain today. 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 She received a blood transfusion last week. She was admitted to the [facility] 2 weeks ago. She called 9 1 today for shortness of breath and abdominal pain. She request to be taken at the [facility], but med control from EMS directed her here instead. Family states that they have made arrangements with the [facility] to transfer her there. Review of Systems Unable to obtain: [place] PD PAST MEDICAL HISTORY - Past Medical History Cardiovascular: None Respiratory: None GI: None Derm: Other - Past Surgical History Past Surgical History: Yes General: Appendectomy - Present Medications Home Medications: Ambulatory Orders Medication Instructions Recorded Confirmed Cannabidiol (Cbd) Extract 0 mg PO 01/12/19 [Epidiolex] Enoxaparin Sodium [Lovenox] 0 mg SQ 01/12/19 - Allergies Allergies/Adverse Reactions: Allergies Allergy/AdvReac Type Severity Reaction Status Date / Time No Known Drug Allergies Allergy Verified 01/12/19 20:39 - Social History Does the pt smoke?: No Smoking Status: Never smoker Does the pt drink ETOH?: No Does the pt have substance abuse?: No - Immunizations Immunizations are current?: No - POLST Patient has POLST: No PD ED PE NORMAL - Vitals Vital signs reviewed: Yes - General General: Other (Frail, cachectic female) - HEENT HEENT: Moist mucous membranes - Neck Neck: Supple, no meningeal sign - Cardiac Cardiac: RRR - Respiratory Respiratory: No respiratory distress, Other (Rhonchi and wheezing bilaterally) - Abdomen Abdomen: Soft, Non distended, Other (diffuse TTP) - Derm Derm: Warm and dry - Extremities Extremities: Other (3+ pitting B LE edema) - Neuro Neuro: Other (alert, speaks slowly) Results - Vitals Vitals: Vital Signs - 24 hr 02/16/19 02/16/19 02/16/19 18:21 18:50 19:20 Temperature Heart Rate 68 61 47 L Respiratory 22 19 11 L Rate Blood Pressure 62/39 L 63/39 L 55/37 L O2 Saturation 95 90 L 90 L 02/16/19 02/16/19 02/16/19 19:30 19:35 20:08 Temperature Heart Rate 55 L 80 97 Respiratory 15 19 20 Rate Blood Pressure 67/43 L 119/95 H O2 Saturation 95 99 02/16/19 02/16/19 02/16/19 20:15 20:30 21:00 Temperature 32.7 C L 33.1 C L Heart Rate 101 H 78 Respiratory 21 19 Rate Blood Pressure 69/50 L 75/53 L O2 Saturation 93 90 L Oxygen O2 Source Non-rebreather mask - EKG (time done) 1899 Rate: Rate (enter#) (50) Intervals: Wide QRS Compare to prior EKG: Other (nearly sinusoidal) 2020 Rate: Rate (enter#) (125) Rhythm: Other (multiple PVC's, possible afib?) Floyd: Normal Compare to prior EKG: Changed from prior EKG - Labs Labs: Laboratory Tests 02/16/19 02/16/19 02/16/19 19:00 19:00 19:00 WBC 19.2 H RBC 2.46 L Hgb 5.7 L* Hct 20.5 L MCV 83.3 MCH 23.2 L MCHC 27.8 L RDW 20.5 H Plt Count 366 MPV 9.9 Neut # (Auto) 15.5 H Lymph # (Auto) 1.6 [place] # (Auto) 0.6 Eos # (Auto) 0.1 Baso # (Auto) 0.0 Absolute Nucleated RBC 0.07 Nucleated RBC % 0.4 Platelet Estimate NORMAL (130-450,000) Platelet Morphology NORMAL APPEARANCE RBC Morph Micro Appear 3+ HYPOCHROMASIA VBG pH VBG pCO2 VBG pO2 VBG HCO3 VBG Total CO2 VBG O2 Saturation VBG Base Excess Sodium 130 L Potassium 8.6 H* Chloride 98 L Carbon Dioxide 11 L* Anion Gap 21.0 H BUN 132 H* Creatinine 2.0 H Estimated GFR (MDRD) 28 L Glucose 69 L Lactic Acid Calcium 8.4 L Phosphorus 15.0 H Magnesium 3.8 H Total Bilirubin 1.0 AST 105 H ALT 51 Alkaline Phosphatase 323 H Total Protein 6.2 L Albumin 2.6 L Globulin 3.6 Albumin/Globulin Ratio 0.7 L Lipase 210 H TSH Free T4 Urine Color Urine Clarity Urine pH Ur Specific [place] Urine Protein Urine Glucose (UA) Urine Ketones Urine Occult Blood Urine Nitrite Urine Bilirubin Urine Urobilinogen Ur Leukocyte Esterase Urine RBC Urine WBC Ur Squamous Epith Cells Urine Bacteria Urine Casts Ur Microscopic Review Urine Culture Comments Salicylates Urine Opiates Screen Ur Oxycodone Screen Urine Methadone Screen Ur Propoxyphene Screen Acetaminophen Ur Barbiturates Screen Ur Tricyclics Screen Ur Phencyclidine Scrn Ur Amphetamine Screen U Methamphetamines Scrn U Benzodiazepines Scrn Urine Cocaine Screen U Cannabinoids Screen Ethyl Alcohol Blood Type Blood Type Recheck O POSITIVE Antibody Screen 02/16/19 02/16/19 02/16/19 20:06 20:06 20:25 WBC RBC Hgb Hct MCV MCH MCHC RDW Plt Count MPV Neut # (Auto) Lymph # (Auto) [place] # (Auto) Eos # (Auto) Baso # (Auto) Absolute Nucleated RBC Nucleated RBC % Platelet Estimate Platelet Morphology RBC Morph Micro Appear VBG pH VBG pCO2 VBG pO2 VBG HCO3 VBG Total CO2 VBG O2 Saturation VBG Base Excess Sodium Potassium Chloride Carbon Dioxide Anion Gap BUN Creatinine Estimated GFR (MDRD) Glucose Lactic Acid Calcium Phosphorus Magnesium Total Bilirubin AST ALT Alkaline Phosphatase Total Protein Albumin Globulin Albumin/Globulin Ratio Lipase TSH Free T4 Urine Color YELLOW Urine Clarity CLOUDY Urine pH 5.0 Ur Specific [place] 1.025 Urine Protein 100 H Urine Glucose (UA) NEGATIVE Urine Ketones NEGATIVE Urine Occult Blood TRACE-LYSE Urine Nitrite NEGATIVE Urine Bilirubin NEGATIVE Urine Urobilinogen 0.2 (NORMAL) Ur Leukocyte Esterase NEGATIVE Urine RBC None Seen Urine WBC 0-3 Ur Squamous Epith Cells NONE SEEN Urine Bacteria None Seen Urine Casts 11-25 Hyaline Casts Ur Microscopic Review INDICATED Urine Culture Comments NOT INDICATED Salicylates Urine Opiates Screen NEGATIVE Ur Oxycodone Screen POSITIVE H Urine Methadone Screen NEGATIVE Ur Propoxyphene Screen NEGATIVE Acetaminophen Ur Barbiturates Screen NEGATIVE Ur Tricyclics Screen NEGATIVE Ur Phencyclidine Scrn NEGATIVE Ur Amphetamine Screen NEGATIVE U Methamphetamines Scrn NEGATIVE U Benzodiazepines Scrn NEGATIVE Urine Cocaine Screen NEGATIVE U Cannabinoids Screen NEGATIVE Ethyl Alcohol Blood Type O POSITIVE Blood Type Recheck Antibody Screen NEGATIVE 02/16/19 02/16/19 02/16/19 20:25 21:03 21:03 WBC RBC Hgb Hct MCV MCH MCHC RDW Plt Count MPV Neut # (Auto) Lymph # (Auto) [place] # (Auto) Eos # (Auto) Baso # (Auto) Absolute Nucleated RBC Nucleated RBC % Platelet Estimate Platelet Morphology RBC Morph Micro Appear VBG pH 7.125 L VBG pCO2 33.8 L VBG pO2 54.9 H VBG HCO3 10.9 L VBG Total CO2 11.9 L VBG O2 Saturation 74.7 VBG Base Excess -17.0 L Sodium 131 L Potassium 7.0 H* Chloride 102 Carbon Dioxide 11 L* Anion Gap 18.0 H BUN 110 H* Creatinine 1.9 H Estimated GFR (MDRD) 30 L Glucose 135 H Lactic Acid 5.2 H* Calcium 7.3 L Phosphorus Magnesium Total Bilirubin AST ALT Alkaline Phosphatase Total Protein Albumin Globulin Albumin/Globulin Ratio Lipase TSH Free T4 Urine Color Urine Clarity Urine pH Ur Specific [place] Urine Protein Urine Glucose (UA) Urine Ketones Urine Occult Blood Urine Nitrite Urine Bilirubin Urine Urobilinogen Ur Leukocyte Esterase Urine RBC Urine WBC Ur Squamous Epith Cells Urine Bacteria Urine Casts Ur Microscopic Review Urine Culture Comments Salicylates Urine Opiates Screen Ur Oxycodone Screen Urine Methadone Screen Ur Propoxyphene Screen Acetaminophen Ur Barbiturates Screen Ur Tricyclics Screen Ur Phencyclidine Scrn Ur Amphetamine Screen U Methamphetamines Scrn U Benzodiazepines Scrn Urine Cocaine Screen U Cannabinoids Screen Ethyl Alcohol Blood Type Blood Type Recheck Antibody Screen 02/16/19 02/16/19 02/16/19 21:03 21:03 21:03 WBC RBC Hgb Hct MCV MCH MCHC RDW Plt Count MPV Neut # (Auto) Lymph # (Auto) [place] # (Auto) Eos # (Auto) Baso # (Auto) Absolute Nucleated RBC Nucleated RBC % Platelet Estimate Platelet Morphology RBC Morph Micro Appear VBG pH VBG pCO2 VBG pO2 VBG HCO3 VBG Total CO2 VBG O2 Saturation VBG Base Excess Sodium Potassium Chloride Carbon Dioxide Anion Gap BUN Creatinine Estimated GFR (MDRD) Glucose Lactic Acid Calcium Phosphorus Magnesium Total Bilirubin AST ALT Alkaline Phosphatase Total Protein Albumin Globulin Albumin/Globulin Ratio Lipase TSH 18.99 H Free T4 0.84 Urine Color Urine Clarity Urine pH Ur Specific [place] Urine Protein Urine Glucose (UA) Urine Ketones Urine Occult Blood Urine Nitrite Urine Bilirubin Urine Urobilinogen Ur Leukocyte Esterase Urine RBC Urine WBC Ur Squamous Epith Cells Urine Bacteria Urine Casts Ur Microscopic Review Urine Culture Comments Salicylates < 6.0 Urine Opiates Screen Ur Oxycodone Screen Urine Methadone Screen Ur Propoxyphene Screen Acetaminophen < 10 L Ur Barbiturates Screen Ur Tricyclics Screen Ur Phencyclidine Scrn Ur Amphetamine Screen U Methamphetamines Scrn U Benzodiazepines Scrn Urine Cocaine Screen U Cannabinoids Screen Ethyl Alcohol < 5.0 Blood Type Blood Type Recheck Antibody Screen - Rads (name of study) cxr Radiology: Prelim report reviewed, EMP read contemporaneously, See rad report (Interval development of diffuse heterogeneous opacities bilaterally, worse in the right lower lung, nonspecific, may reflect atypical infection, noncardiogenic edema, and/or worsening of known diffuse parenchymal nodular dise ase as seen on prior chest CT. ) PD MEDICAL DECISION MAKING - ED course Complexity details: reviewed results, re-evaluated patient, considered differential, d/w patient, d/w family, d/w environmental remediation consultant ED course: 38-year-old female with a sinusoidal EKG upon arrival consistent with hyperkalemia. She was given albuterol, insulin, glucose. Given calcium gluconate, sodium bicarbonate infusion. IV fluids. IV Lasix. Howe catheter placed. Her EKG narrowed and returned back into a sinus rhythm. She has severe anemia as well. I do not have much of her history available here as her care is all down at the [facility]. Contacted the [facility] in 1940 for transfer. She has pulmonary edema as well. She will need to be helicoptered down to the ICU there. Discussed the case with Levi Real at 2004. He states that she can be transferred directly to the [facility]. Discussed the case with Dr. Brissa Romero, ICU attending at the [facility]. She graciously accepts in transfer. COBRA forms completed. This document was made in part using voice recognition software. While efforts are made to proofread this document, sound alike and grammatical errors may occur. Upon further history from the family as well as the [facility]. She has a metastatic pheochromocytoma. Here she appears to be septic with multisystem organ failure. She was given Rocephin as well. I called Dr. Ibanez and updated her with the remainder of the laboratory results. I discussed with the patient and family and power of commercial real estate attorney prior to the helicopter taken off the patient's CODE STATUS and they wish her to be DNR and DNI at this time. This information was also relayed to Dr. Ibanez. - Critical Care Time(min): 70 Time Includes: Direct patient care, Review records, Reassess patient, Document care, Coordinate care, Medical consult, Family consult for tx dec, See progress note Data interpretation: See progress note Procedures included in critical care time: See progress note Procedures excluded from critical care time: EKG, See progress note Departure - Departure Disposition: 02 Transfer Acute Care Hosp Clinical Impression: Hyperkalemia, Dehydration, Uremia, Cachexia, Peripheral edema Acute renal failure Qualifiers: Acute renal failure type: unspecified Qualified Code(s): N17.9 - Acute kidney failure, unspecified Anemia Qualifiers: Anemia type: unspecified type Qualified Code(s): D64.9 - Anemia, unspecified Pulmonary edema Qualifiers: Chronicity: acute Qualified Code(s): J81.0 - Acute pulmonary edema Hypothermia Qualifiers: Encounter type: initial encounter Qualified Code(s): T68.XXXA - Hypothermia, initial encounter Condition: Serious Discharge Date/Time: 02/16/19 21:38
[2019-02-16 19:04] LABS: BASOPHILS % (AUTO) 0.2 %; EOSINOPHILS # (AUTO) 0.1 10^3/uL (0.0-0.7); EOSINOPHILS % (AUTO) 0.3 %; LYMPHOCYTES # (AUTO) 1.6 10^3/uL (1.5-3.5); LYMPHOCYTES % (AUTO) 8.3 %; MEAN CORPUSCULAR HEMOGLOBIN 23.2 pg (27.0-31.0); MEAN CORPUSCULAR HGB CONC 27.8 g/dL (32.0-36.0); MEAN CORPUSCULAR VOLUME 83.3 fL (81.0-99.0); MEAN PLATELET VOLUME 9.9 fL (7.9-10.8); MONOCYTES # (AUTO) 0.6 10^3/uL (0.0-1.0); NEUTROPHILS # (AUTO) 15.5 10^3/uL (1.5-6.6); NEUTROPHILS % (AUTO) 80.6 %; PLT - PLATELET COUNT 366 10^3/uL (130-450); RED BLOOD COUNT 2.46 10^6/uL (4.20-5.40); RED CELL DISTRIBUTION WIDTH 20.5 % (12.0-15.0); WHITE BLOOD COUNT 19.2 x10^3/uL (4.8-10.8)
[2019-02-16] MEDS ORDERED: MAGNESIUM SULFATE 2 GRAM 2 GM/50 ML BAG IV ONE (19:04)
[2019-02-16] MEDS ORDERED: DEXTROSE 10% 250 ML IV STA (19:04)
[2019-02-16] MEDS ORDERED: INSULIN REGULAR HUMAN 100 UNIT/1 ML 10 ML MDV SUBQ STA ×2 (19:04→20:54)
[2019-02-16 19:06] LABS: HGB - HEMOGLOBIN 5.7 g/dL (12.0-16.0)
[2019-02-16] MEDS ORDERED: ALBUTEROL NEB 2.5 MG/3 ML INH STA ×4 (19:07→19:28)
[2019-02-16] MEDS ORDERED: SODIUM CHLORIDE 0.9% 1,000 ML IV ONE ×2 (19:07→19:18)
[2019-02-16] MEDS ORDERED: CALCIUM GLUCONATE 1,000 MG in SODIUM CHLORIDE 0.9% 50 ML IV STA (19:19)
[2019-02-16 19:21] LABS: ALBUMIN 2.6 g/dL (3.2-5.5); ALBUMIN/GLOBULIN RATIO 0.7 (1.0-2.2); CALCIUM 8.4 mg/dL (8.5-10.3); MAGNESIUM 3.8 mg/dL (1.7-2.8); TOTAL PROTEIN 6.2 g/dL (6.7-8.2)
[2019-02-16] MEDS ORDERED: SODIUM BICARBONATE 100 MEQ in DEXTROSE 5% 1,000 ML IV STA (19:27)
[2019-02-16 19:30] LABS: PLATELET MORPHOLOGY NORMAL APPEARANCE (NORMAL)
[2019-02-16 19:31] LABS: PLATELET ESTIMATE, MANUAL NORMAL (130-450,000) (NORMAL)
[2019-02-16] MEDS ORDERED: SODIUM BICARBONATE 8.4% 50 MEQ/50 ML VIAL ONE (19:52)
[2019-02-16] MEDS ORDERED: DEXTROSE 10% IV ONE (19:55)
[2019-02-16] MEDS ORDERED: DEXTROSE 5% 2,000 ML IV ONE (19:55)
[2019-02-16] MEDS ORDERED: FUROSEMIDE 40 MG/4 ML VIAL IVP STA (19:58)
[2019-02-16] MEDS ORDERED: LORazepam 2 MG/ML VIAL IVP STA (20:15)
[2019-02-16 20:16] LABS: BILIRUBIN,URINE NEGATIVE (NEGATIVE); GLUCOSE, URINE (UA) NEGATIVE (NEGATIVE); KETONES,URINE (UA) NEGATIVE (NEGATIVE); LEUKOCYTE ESTERASE, URINE NEGATIVE (NEGATIVE); NITRITE,URINE NEGATIVE (NEGATIVE); OCCULT BLOOD,URINE TRACE-LYSE (NEGATIVE); PROTEIN,URINE 100 mg/dL (NEGATIVE); UROBILINOGEN,URINE 0.2 (NORMAL) E.U./dL (NORMAL)
[2019-02-16 20:30] LABS: CLARITY,URINE CLOUDY (CLEAR)
[2019-02-16 20:31] LABS: BACTERIA,URINE None Seen /HPF (None Seen); RBC,URINE None Seen /HPF (0-5); SQUAMOUS EPITHELIAL CELL,UR NONE SEEN (<= Few)
--- NOTE | 2019-02-16 20:37 | XRAY Report ---
Reason: hypoxia, chest pain Procedure Date: 02/16/2019 Accession Number: [id number] / [id number] Procedure: XR - Chest 1 View X-Ray CPT Code: 24446 FULL RESULT: EXAM: CHEST RADIOGRAPHY EXAM DATE: 02/16/2019 08:18 PM. CLINICAL HISTORY: Hypoxia, chest pain. COMPARISON: CHEST 1 VIEW 09/26/2018 7:58 AM CHEST ANGIO 09/26/2018 9:10 AM. TECHNIQUE: 1 view. FINDINGS: Lungs/Pleura: Interval development of diffuse interstitial and patchy alveolar opacities, worse in the right lower lung. Many opacity seems somewhat nodular. No pneumothorax. Mediastinum: Contours are unremarkable. Other: None. IMPRESSION: Interval development of diffuse heterogeneous opacities bilaterally, worse in the right lower lung, nonspecific, may reflect atypical infection, noncardiogenic edema, and/or worsening of known diffuse parenchymal nodular disease as seen on prior chest CT. [facility]
[2019-02-16 20:44] LABS: CALCIUM 7.3 mg/dL (8.5-10.3); CREATININE 1.9 mg/dL (0.4-1.0)
[2019-02-16] MEDS ORDERED: cefTRIAXone 1 GM VIAL IVP STA (20:56)
[2019-02-16 21:07] VITALS: BP 75/53
[2019-02-16 21:09] LABS: VBG PCO2 33.8 mmHg (41-51); VBG PH 7.125 (7.31-7.41); VBG PO2 54.9 mmHg (25-47); VBG TOTAL CO2 11.9 mmol/L (24-29)
[2019-02-16 21:30] LABS: ACETAMINOPHEN < 10 ug/mL (10-30); SALICYLATE < 6.0 mg/dL
[2019-02-16 22:00] LABS: MUDS CUTOFF CONCENTRATIONS CUTOFF CONC BELOW:
[2019-02-16 22:14] LABS: AMPHETAMINE SCREEN,URINE NEGATIVE (NEGATIVE); BENZODIAZEPINES SCREEN, URINE NEGATIVE (NEGATIVE); COCAINE SCREEN URINE NEGATIVE (NEGATIVE); METHADONE SCREEN, URINE NEGATIVE (NEGATIVE); METHAMPHETAMINES SCREEN, URINE NEGATIVE (NEGATIVE); OPIATE SCREEN, URINE NEGATIVE (NEGATIVE); OXYCODONE SCREEN, URINE POSITIVE (NEGATIVE); PROPOXYPHENE SCREEN, URINE NEGATIVE (NEGATIVE); TRICYCLIC ANTIDEPRESSANT,URINE NEGATIVE (NEGATIVE)
== END 2019-02-16 21:38 | disposition short-term general hospital (02) ==
LOC: EDUNIT# → ED 18:19
DX: E87.5 Hyperkalemia (principal); E86.0 Dehydration; R64 Cachexia; R60.9 Edema, unspecified; N17.9 Acute kidney failure, unspecified; R68.0 Hypothermia, not associated with low environmental temperature; D64.9 Anemia, unspecified; J18.0 Bronchopneumonia, unspecified organism; C74.10 Malignant neoplasm of medulla of unspecified adrenal gland; C79.9 Secondary malignant neoplasm of unspecified site
CPT/HCPCS: 36415; 51702; 71045; 80048; 80320; 80329; 81001; 82803; 83605; 83690; 83735; 84100; 84439; 86850; 86900; 86901; 87040; 87077; 87181; 93005; 94640; 96365; 96368; 96375; 99285; 99291; J1815; J2060; J3490; J7040; 80053; 80306; 80307; 81003; 84443; 85025; 87086